=== PATIENT | female | born 1990 | race Caucasian/White ===

== ENCOUNTER 2016-07-16 17:33 | Emergency (ER) | payer BC ==
[2014-08-14 06:39] VITALS: BMI 29.3
[~2016-07-16 17:33] MED LIST: DOXYCYCLINE HY100 M2 PO; HYDROCODON-ACE1 EAC7 PO; IBUPROFEN600 MG PO; KEFLEX500 MG PO; METHERGINE0.2 MG PO; NORCO 5/325 TAB1 TA1 PO; PERCOCET 5-3251 TAB PO; PRENATAL COMPLE1 TAB PO; TYLENOL #4 W/CO1 TAB PO; ZOFRAN4 MG PO
[2016-07-16 18:36] LABS: BASOPHILS 0.2 % (0.0-2.0); EOSINOPHILS 3.8 % (0-7); HEMATOCRIT 40.5 % (36.0-48.0); HEMOGLOBIN 13.5 g/dL (12-16); IMMATURE GRANULOCYTES 0.2 % (0-5); LYMPHOCYTES 33.5 % (15-50); MCH 29.7 pg (26.0-34.0); MCHC 33.3 g/dL (31.0-37.0); MCV 89.2 fL (80.0-100.0); MEAN PLATELET VOLUME 11.4 fL (7.4-10.4); NEUTROPHILS 55.3 % (40-80); PLATELET COUNT 173 10x3/uL (130-400); RBC 4.54 10x6/uL (4.00-5.40); RDW 13.5 % (11.5-14.5); WBC 5.9 10x3/uL (4.8-10.8)
[2016-07-16 19:22] LABS: HCG SERUM NEGATIVE (NEGATIVE)
== END 2016-07-16 22:08 | disposition home or self-care (01) ==
LOC: D.ER 17:33
PROVIDERS: Emergency Medicine; Physician Assistant Medical
DX: N93.8 Other specified abnormal uterine and vaginal bleeding (principal); N93.9 Abnormal uterine and vaginal bleeding, unspecified; F17.200 Nicotine dependence, unspecified, uncomplicated

== ENCOUNTER 2016-09-30 06:43 | Day surgery (SDC) | payer MEDICAID ==
[2016-09-28 13:01] LABS: BASOPHILS 0.4 % (0-2); EOSINOPHILS 2.9 % (0-7); HEMATOCRIT 41.9 % (36.0-48.0); HEMOGLOBIN 13.9 g/dL (12-16); LYMPHOCYTES 40.6 % (15-50); MCH 29.8 pg (26.0-34.0); MCHC 33.2 g/dL (31.0-37.0); MCV 89.7 fL (80.0-100.0); MEAN PLATELET VOLUME 11.6 fL (7.4-10.4); MONOCYTES 5.7 % (2-11); NEUTROPHILS 50.4 % (40-80); PLATELET COUNT 175 10x3/uL (130-400); RBC 4.67 10x6/uL (4.00-5.40); RDW 12.6 % (11.5-14.5); WBC 5.3 10x3/uL (4.8-10.8)
[2016-09-28 13:17] LABS: CALC OSMOLALITY 276 mosm/kg (275-300); CALCIUM 9.1 mg/dL (8.5-10.1); CARBON DIOXIDE 30.4 mmol/L (21.0-32.0); CHLORIDE - SERUM 104 mmol/L (98-107); CREATININE - SERUM 0.9 mg/dL (0.6-1.3); GLUCOSE 104 mg/dL (74-106); POTASSIUM - SERUM 3.5 mmol/L (3.5-5.1); SODIUM 139 mmol/L (136-145); UREA NITROGEN 10 mg/dL (7-18); eGFR NON AFRICAN AMERICAN 82 mL/min (90-120)
[~2016-09-30] VITALS: Ht 152.4 cm; Wt 65.8 kg
--- NOTE | ~2016-09-30 | OP ---
PATIENT NAME: KERRY JOE MEDICAL RECORD: [id number] :89 LOCATION:D.OPS ADMISSION DATE: SURGEON: SHAHBAZ TRINIDAD MD DATE OF OPERATION: 09/30/2016 PREOPERATIVE DIAGNOSIS: Menorrhagia. POSTOPERATIVE DIAGNOSIS: Menorrhagia. PROCEDURES: Hysteroscopy and NovaSure endometrial ablation. SURGEON: Shahbaz Trinidad MD. ESTIMATED BLOOD LOSS: Minimal. INTRAVENOUS FLUIDS: Per anesthesia records. HYSTEROSCOPIC FLUID LOSS: Less than 50 cc. FINDINGS: 1. Grossly normal-appearing proliferative endometrium. 2. Grossly normal external genitalia. PROCEDURE IN DETAIL: The patient was taken to the operating room where general anesthesia was achieved without difficulty. The patient was then prepped and draped in normal sterile fashion in the dorsal lithotomy position in the [facility]. At this point, the bladder was drained of approximately 15 cc of clear yellow urine. A Graves speculum was placed in the vagina. Cervix was identified and grasped on its anterior lip with a single-tooth tenaculum. At this point, the patient was sounded to exactly 10 cm, at which point gentle dilation was performed. NovaSure device was then calibrated and measurements were performed. Cavity length equal to 6 cm, cavity width of 4 cm. Following dilation to 8 mm, the NovaSure device was inserted into the cervix without any resistance. The NovaSure was gently deployed to a cavity width of approximately 4 cm. The cervical cover was then advanced on initial attempt. The NovaSure device would not engage and obvious air leakage was identified at the cervical os. The cervical slide cap was then more firmly placed and a second attempt was made and the vacuum and cavity assessment passed. The patient had a burn of approximately 80 seconds. Following removal of the NovaSure device, no bleeding was noted from the cervix. The tenaculum was then removed. The patient tolerated the procedure well, transferred to postanesthesia recovery stable without incident. TRANSINT:[id number] Voice Confirmation ID: [id number] DOCUMENT ID: [id number] SHAHBAZ TRINIDAD MD CC: [id number] DICTATION DATE: 09/30/16 1142 MANAGER TRUCK: 09/30/[address] [facility] [address] [place] [address]
[2016-09-30] MEDS ORDERED: JOLIVETTE0.35 MG PO (07:59)
[2016-09-30 08:13] VITALS: BP 108/68; Ht 152.4 cm; Wt 65.8 kg
[2016-09-30 08:18] LABS: HCG URINE NEGATIVE (NEGATIVE)
--- NOTE | 2016-09-30 15:55 | NUR ---
1220--PT VOIDS WITHOUT DIFFICULTY, IV DC'D. VASQUEZ LE 1225--DISCHARGE INSTRUCTIONS GIVEN, PT VERBALIZES UNDERSTANDING. PT OFF UNIT VIA WC. VASQUEZ LE
== END 2016-09-30 12:25 | disposition home or self-care (01) ==
LOC: D.OPS 06:43 → D.PAN 09:00 → D.OPS 09:00 → D.PAN 09:45 → D.OPS 12:25
PROVIDERS: Obstetrics & Gynecology
DX: N92.0 Excessive and frequent menstruation with regular cycle (principal); N80.9 Endometriosis, unspecified; Z88.6 Allergy status to analgesic agent; Z88.5 Allergy status to narcotic agent; Z79.891 Long term (current) use of opiate analgesic

== ENCOUNTER 2016-10-07 10:44 | Emergency (ER) | payer MEDICAID ==
[2016-09-30 08:13] VITALS: BMI 28.3
[~2016-10-07 10:44] MED LIST changes: +JOLIVETTE0.35 MG PO
== END 2016-10-07 11:40 | disposition home or self-care (01) ==
LOC: D.ER 10:44
DX: S93.401A Sprain of unspecified ligament of right ankle, initial encounter (principal); X58.XXXA Exposure to other specified factors, initial encounter; Y93.89 Activity, other specified; Y92.013 Bedroom of single-family (private) house as the place of occurrence of the external cause; F17.200 Nicotine dependence, unspecified, uncomplicated

== ENCOUNTER 2016-12-11 10:37 | Emergency (ER) | payer MEDICAID ==
[2016-09-30 08:13] VITALS: BMI 28.3
[2016-12-11 11:18] LABS: HCG URINE NEGATIVE (NEGATIVE)
== END 2016-12-11 12:35 | disposition home or self-care (01) ==
LOC: D.ER 10:37
PROVIDERS: Nurse Practitioner Family
DX: R51 Headache (principal); W18.2XXA Fall in (into) shower or empty bathtub, initial encounter; Y93.89 Activity, other specified; Y92.89 Other specified places as the place of occurrence of the external cause; R11.0 Nausea; R53.1 Weakness; F17.200 Nicotine dependence, unspecified, uncomplicated

== ENCOUNTER 2017-02-01 17:38 | Emergency (ER) | payer MEDICAID ==
[2016-09-30 08:13] VITALS: BMI 28.3
== END 2017-02-01 22:09 | disposition home or self-care (01) ==
LOC: D.ER 17:38
DX: T65.891A Toxic effect of other specified substances, accidental (unintentional), initial encounter (principal); Y92.019 Unspecified place in single-family (private) house as the place of occurrence of the external cause; J02.9 Acute pharyngitis, unspecified; R10.9 Unspecified abdominal pain

== ENCOUNTER 2017-02-15 17:45 | Emergency (ER) | payer MEDICAID ==
[2016-09-30 08:13] VITALS: BMI 28.3
[2017-02-15 18:18] LABS: BASOPHILS 0.1 % (0-2); EOSINOPHILS 1.8 % (0-7); HEMOGLOBIN 14.4 g/dL (12-16); IMMATURE GRANULOCYTES 0.1 % (0-5); LYMPHOCYTES 30.6 % (15-50); MCH 30.9 pg (26.0-34.0); MCHC 33.5 g/dL (31.0-37.0); MCV 92.3 fL (80.0-100.0); MEAN PLATELET VOLUME 10.7 fL (7.4-10.4); NEUTROPHILS 59.4 % (40-80); PLATELET COUNT 173 10x3/uL (130-400); RBC 4.66 10x6/uL (4.00-5.40); RDW 13.5 % (11.5-14.5); WBC 6.8 10x3/uL (4.8-10.8)
[2017-02-15 18:38] LABS: HCG SERUM NEGATIVE (NEGATIVE)
[2017-02-15 20:11] LABS: APPEARANCE CLEAR (CLEAR); BILIRUBIN NEGATIVE (NEGATIVE); COLOR YELLOW (YELLOW); GLUCOSE NEGATIVE (NEGATIVE); KETONE NEGATIVE (NEGATIVE); NITRITE NEGATIVE (NEGATIVE); PROTEIN NEGATIVE (NEGATIVE); SPECIFIC GRAVITY 1.015 (1.005-1.020); UROBILINOGEN NORMAL (NORMAL)
== END 2017-02-15 22:08 | disposition home or self-care (01) ==
LOC: D.ER 17:45
PROVIDERS: Family Medicine; Nurse Practitioner Family
DX: R10.9 Unspecified abdominal pain (principal); R11.2 Nausea with vomiting, unspecified

== ENCOUNTER 2017-07-14 14:14 | Emergency (ER) | payer MEDICAID ==
[2016-09-30 08:13] VITALS: BMI 28.3
[2017-07-14 15:14] LABS: APPEARANCE CLEAR (CLEAR); BILIRUBIN NEGATIVE (NEGATIVE); COLOR YELLOW (YELLOW); GLUCOSE NEGATIVE (NEGATIVE); KETONE NEGATIVE (NEGATIVE); NITRITE NEGATIVE (NEGATIVE); PROTEIN NEGATIVE (NEGATIVE); SPECIFIC GRAVITY 1.015 (1.005-1.020); UROBILINOGEN NORMAL (NORMAL)
== END 2017-07-14 15:52 | disposition home or self-care (01) ==
LOC: D.ER 14:14
PROVIDERS: Physician Assistant Medical
DX: S29.011A Strain of muscle and tendon of front wall of thorax, initial encounter (principal); X58.XXXA Exposure to other specified factors, initial encounter; Y93.89 Activity, other specified; Y92.89 Other specified places as the place of occurrence of the external cause; F17.200 Nicotine dependence, unspecified, uncomplicated

== ENCOUNTER 2018-09-27 12:35 | Emergency (ER) | payer MEDICAID ==
[~2018-09-27] VITALS: Ht 152.4 cm; Wt 58.6 kg
[2018-09-27 12:37] VITALS: Ht 152.4 cm; Wt 58.6 kg
[2018-09-27] MEDS ORDERED: CELEXA10 MG PO (12:39)
[2018-09-27 13:01] LABS: APPEARANCE CLEAR (CLEAR); BILIRUBIN NEGATIVE (NEGATIVE); COLOR YELLOW (YELLOW); GLUCOSE NEGATIVE (NEGATIVE); HCG URINE NEGATIVE (NEGATIVE); KETONE NEGATIVE (NEGATIVE); NITRITE NEGATIVE (NEGATIVE); PROTEIN NEGATIVE (NEGATIVE); SPECIFIC GRAVITY 1.005 (1.005-1.020); UROBILINOGEN NORMAL (NORMAL)
[2018-09-27 13:07] LABS: BASOPHILS 0.4 % (0-2); EOSINOPHILS 1.9 % (0-7); HEMATOCRIT 41.4 % (36.0-48.0); HEMOGLOBIN 14.3 g/dL (12-16); IMMATURE GRANULOCYTES 0.2 % (0-5); LYMPHOCYTES 35.6 % (15-50); MCH 31.7 pg (26.0-34.0); MCHC 34.5 g/dL (31.0-37.0); MCV 91.8 fL (80.0-100.0); MEAN PLATELET VOLUME 10.3 fL (7.4-10.4); MONOCYTES 6.5 % (2-11); NEUTROPHILS 55.4 % (40-80); PLATELET COUNT 149 10x3/uL (130-400); RBC 4.51 10x6/uL (4.00-5.40); RDW 12.9 % (11.5-14.5); WBC 5.7 10x3/uL (4.8-10.8)
[2018-09-27 13:21] LABS: ALKALINE PHOSPHATASE 57 U/L (46-116); ALT (SGPT) 39 U/L (10-68); BILIRUBIN - TOTAL 1.27 mg/dL (0.2-1.3); CALC OSMOLALITY 267 mosm/kg (275-300); CALCIUM 8.9 mg/dL (8.5-10.1); CHLORIDE - SERUM 104 mmol/L (98-107); CREATININE - SERUM 0.8 mg/dL (0.6-1.3); GLUCOSE 87 mg/dL (74-106); PROTEIN - SERUM 7.3 g/dL (6.4-8.2); SODIUM 135 mmol/L (136-145); UREA NITROGEN 10 mg/dL (7-18); eGFR NON AFRICAN AMERICAN > 90 mL/min (90-120)
[2018-09-27 13:24] LABS: AMYLASE - SERUM 53 U/L (25-115); LIPASE 121 U/L (73-393); TROPONIN-I < 0.017 ng/mL (0.000-0.060)
[2018-09-27] MEDS ORDERED: ZANTAC300 MG PO (16:27)
[2018-09-27] MEDS ORDERED: LEVSIN/ANASP0.125 MG PO (16:27)
[2018-09-27] MEDS ORDERED: ACETAMINOPHEN500 M1 PO (16:27)
[2018-09-27] MEDS ORDERED: FLORASTOR250 MG PO (16:28)
[2018-09-27 17:25] VITALS: BP 107/59
== END 2018-09-27 17:26 | disposition home or self-care (01) ==
LOC: D.ER 12:35
PROVIDERS: Family Medicine
DX: R10.9 Unspecified abdominal pain (principal)